=== PATIENT | female | born 1950 | race Caucasian/White ===

== ENCOUNTER 2018-06-24 12:55 | Inpatient (IN) | payer MEDICARE, OTHER ==
[2018-06-24 13:24] LABS: ADD MAN DIFF? NO
[2018-06-24 13:25] LABS: WHITE BLOOD COUNT 4.9 10^3/ul (4.8-10.8)
[2018-06-24 13:26] LABS: BASOPHILS % 0.4 % (0.0-2.0); EOSINOPHILS # 0.1 10^3/ul (0.0-0.5); EOSINOPHILS % 1.2 % (0.0-7.0); HEMATOCRIT 40.7 % (37.0-47.0); HEMOGLOBIN 13.7 g/dl (12.0-16.0); LYMPHOCYTES # 1.7 10^3/ul (0.8-2.9); LYMPHOCYTES % 33.8 % (15.0-51.0); MEAN CORPUSCULAR HEMOGLOBIN 30.2 pg (29.0-33.0); MEAN CORPUSCULAR HGB CONC 33.7 g/dl (32.0-37.0); MEAN CORPUSCULAR VOLUME 89.8 fl (82.0-101.0); MEAN PLATELET VOLUME 9.6 fl (7.4-10.4); MONOCYTE # 0.5 10^3/ul (0.3-0.9); MONOCYTES % 10.2 % (0.0-11.0); NEUTROPHIL # 2.7 10^3/ul (1.6-7.5); NEUTROPHILS % 54.2 % (39.0-77.0); PLATELET COUNT 155 10^3/UL (140-415); RED BLOOD COUNT 4.53 10^6/ul (4.20-5.40); RED CELL DISTRIBUTION WIDTH 12.9 % (11.5-14.5)
[2018-06-24 13:43] LABS: ALANINE AMINOTRANSFERASE 20 IU/L (13-69); ALBUMIN 4.1 g/dl (3.3-4.9); ALBUMIN/GLOBULIN RATIO 1.46; ALKALINE PHOSPHATASE 64 IU/L (42-121); ANION GAP 16 (8-16); ASPARTATE AMINO TRANSFERASE 28 IU/L (15-46); BILIRUBIN,INDIRECT 0.4 mg/dl (0-1.1); BILIRUBIN,TOTAL 0.4 mg/dl (0.2-1.3); BLOOD UREA NITROGEN 11 mg/dl (7-20); CARBON DIOXIDE 20 mmol/L (21-31); CHLORIDE 108 mmol/L (97-110); CREATININE 0.86 mg/dl (0.44-1.00); GLUCOSE 111 mg/dl (70-220); POTASSIUM 3.8 mmol/L (3.5-5.1); SODIUM 140 mmol/L (135-144); TOTAL PROTEIN 6.9 g/dl (6.1-8.1)
[2018-06-24] MEDS: LEVETIRACETAM 1000 MG (PMX) 100 ML IVPB (13:48)
[2018-06-24] MEDS: SOD CHLORIDE 0.9% 1,000 ML IV ×4 (13:48→21:33)
[2018-06-24 13:54] LABS: TROPONIN-I < 0.012 ng/ml (0.000-0.120)
[2018-06-24] MEDS ORDERED: ONDANSETRON 4 MG INJ IV ×3 (16:30→21:00)
[2018-06-24] MEDS ORDERED: ACETAMINOPHEN 325 MG TAB PO ×2 (16:30→19:30)
[2018-06-24 17:06] LABS: INR 0.93; PROTIME 12.5 Sec (11.9-14.9)
[2018-06-24 17:07] LABS: PARTIAL THROMBOPLASTIN TIME 25.3 Sec (25.0-35.0)
[2018-06-24] MEDS: IOHEXOL 100 ML (17:29)
[2018-06-24] MEDS: SOD CHLORIDE 0.9% 100 ML (17:29)
[2018-06-24] MEDS ORDERED: BISACODYL (EC) 5 MG TAB PO (21:00)
[2018-06-24] MEDS ORDERED: ALBUTEROL/IPRATROPIUM (NEB) 3 ML AMP NEB (21:00)
[2018-06-24] MEDS ORDERED: DOCUSATE SODIUM 100 MG CAP PO (21:00)
[2018-06-24] MEDS ORDERED: ACETAMINOPHEN 650MG/20.3ML CUP PO (21:00)
[2018-06-24] MEDS: DOCUSATE SODIUM 100 MG CAP PO (21:00)
[2018-06-24] MEDS ORDERED: LABETALOL HCL 20MG INJ IV (21:00)
[2018-06-24 21:24] LABS: HEMOGLOBIN A1C 5.6 % (0-5.9)
[2018-06-25] MEDS: PANTOPRAZOLE (EC) 40 MG TAB PO (05:35)
[2018-06-25 09:25] LABS: ADD MAN DIFF? NO
[2018-06-25 09:29] LABS: WHITE BLOOD COUNT 4.6 10^3/ul (4.8-10.8)
[2018-06-25 09:29] LABS: BASOPHILS % 0.4 % (0.0-2.0); EOSINOPHILS % 0.9 % (0.0-7.0); HEMOGLOBIN 12.5 g/dl (12.0-16.0); LYMPHOCYTES # 1.1 10^3/ul (0.8-2.9); LYMPHOCYTES % 23.1 % (15.0-51.0); MEAN CORPUSCULAR HEMOGLOBIN 29.6 pg (29.0-33.0); MEAN CORPUSCULAR HGB CONC 32.9 g/dl (32.0-37.0); MEAN PLATELET VOLUME 9.7 fl (7.4-10.4); MONOCYTE # 0.3 10^3/ul (0.3-0.9); MONOCYTES % 5.9 % (0.0-11.0); NEUTROPHIL # 3.2 10^3/ul (1.6-7.5); NEUTROPHILS % 69.3 % (39.0-77.0); PLATELET COUNT 149 10^3/UL (140-415); RED BLOOD COUNT 4.22 10^6/ul (4.20-5.40); RED CELL DISTRIBUTION WIDTH 13.3 % (11.5-14.5)
[2018-06-25] MEDS: DOCUSATE SODIUM 100 MG CAP PO (09:44)
[2018-06-25 09:52] LABS: ANION GAP 9 (8-16); BLOOD UREA NITROGEN 7 mg/dl (7-20); CALCIUM 8.6 mg/dl (8.4-10.2); CARBON DIOXIDE 27 mmol/L (21-31); CHLORIDE 108 mmol/L (97-110); CREATININE 0.78 mg/dl (0.44-1.00); GLUCOSE 133 mg/dl (70-220); PHOSPHORUS 3.2 mg/dl (2.5-4.9); SODIUM 140 mmol/L (135-144)
[2018-06-25] MEDS: SOD CHLORIDE 0.9% 1,000 ML IV (14:24)
[2018-06-25] MEDS: LEVETIRACETAM 500 MG TAB PO (19:36)
[2018-06-25] MEDS ORDERED: LEVETIRACETAM 500 MG TAB PO (21:00)
== END 2018-06-25 20:05 | disposition home or self-care (01) | DRG 66 ==
LOC: E/R 12:55 → ICU 19:22
DX: I61.9 Nontraumatic intracerebral hemorrhage, unspecified (principal)
CPT/HCPCS: 36415; 70450; 70496; 70551; 71045; 80048; 80053; 83036; 83735; 84100; 84484; 85025; 85610; 85730; 87081; 92523; 92610; 96365; 96366; 99291-25